=== PATIENT | female | born 1950 | race Asian ===

== ENCOUNTER 2023-12-06 21:26 | Inpatient (IN) | payer OTHER ==
[~2023-12-06] VITALS: Ht 162.6 cm; Wt 49.9 kg
[2023-12-06 21:39] VITALS: BP 129/75; PULSE 77; RESP 16; TEMP 98.1; O2SAT 99
[2023-12-06 22:22] LABS: APPEARANCE,URINE HAZY (CLEAR); BILIRUBIN,URINE 1+ (NEGATIVE); BLOOD, URINE 1+ (NEGATIVE); COLOR,URINE YELLOW (YELLOW); LEUKOCYTE ESTERASE ,URINE TRACE (NEGATIVE); NITRITE, URINE NEGATIVE (NEGATIVE); PROTEIN,URINE NEGATIVE (NEGATIVE); UGLUCOSE NEGATIVE (NEGATIVE)
[2023-12-06 22:24] LABS: ICTOTEST POSITIVE (NEGATIVE); RBC,URINE 0-5 /HPF (0-5); WBC,URINE 0-5 /HPF (0-5)
[2023-12-06 22:25] LABS: BACTERIA,URINE 2+ /HPF (None Seen); MUCUS,URINE None Seen /LPF (None Seen); SQUAMOUS EPITHELIAL CELL,UR 0-3 (FEW) /LPF (0-3 (FEW))
[2023-12-06 22:56] LABS: BASOPHILS # (AUTO) 0.1 K/uL (0.00-0.22); BASOPHILS % (AUTO) 0.6 % (0.0-2.0); EOSINOPHILS % (AUTO) 0.1 % (0.0-4.0); HEMATOCRIT 38.9 % (36-48); HEMOGLOBIN 13.1 g/dL (12.0-16.0); LYMPHOCYTES # (AUTO) 0.8 K/uL (2.5-16.5); LYMPHOCYTES % (AUTO) 6.4 % (20.5-51.1); MEAN CORPUSCULAR HEMOGLOBIN 32 pg (27-31); MEAN CORPUSCULAR HGB CONC 34 g/dL (33-37); MEAN CORPUSCULAR VOLUME 94.8 fL (80-94); MONOCYTES # (AUTO) 0.5 K/uL (0.8-1.0); MONOCYTES % (AUTO) 4.2 % (1.7-9.3); NEUTROPHILS # (AUTO) 11.4 K/uL (1.8-7.7); NEUTROPHILS % (AUTO) 88.7 % (42.2-75.2); PLATELET COUNT (AUTO) 316 K/uL (140-450); RED BLOOD CELL COUNT(AUTO) 4.11 MIL/uL (4.20-5.40); RED CELL DISTRIBUTION WIDTH 14.1 % (11.6-13.7); WHITE BLOOD COUNT (AUTO) 12.8 K/uL (4.8-10.8)
[2023-12-06] MEDS: ONDANSETRON 4 MG/2 ML VIAL IVP ONE (23:01)
[2023-12-06 23:04] LABS: ANION GAP 15.8 (8-16); CALCIUM 9.5 mg/dL (8.5-10.1); CARBON DIOXIDE 25.2 mmol/L (21-32); CHLORIDE 104 mmol/L (98-107); CREATININE 0.7 mg/dL (0.6-1.3); GLUCOSE 103 mg/dL (74-106); SODIUM SERUM 141 mmol/L (136-145); UREA NITROGEN, BLOOD 10 mg/dL (7-18)
[2023-12-06] MEDS: MORPHINE SULFATE 2 MG/ML SYR IVP STA (23:06)
[2023-12-06 23:18] LABS: ALBUMIN 3.7 g/dL (3.4-5.0); BILIRUBIN,DIRECT 1.4 mg/dL (0.0-0.3); TOTAL BILIRUBIN 2.1 mg/dL (0.0-1.0)
[2023-12-07] MEDS ORDERED: ACETAMINOPHEN 325 MG TAB PO PRN (04:50)
[2023-12-07] MEDS ORDERED: HYDROcodone/APAP 5/325 MG 1 TAB TAB PO PRN (04:50)
[2023-12-07] MEDS ORDERED: ONDANSETRON 4 MG/2 ML VIAL IVP PRN (04:50)
[2023-12-07] MEDS ORDERED: MORPHINE SULFATE 2 MG/ML SYR IVP PRN (04:50)
[2023-12-07] MEDS ORDERED: LORazepam 2 MG/ML VIAL IVP PRN (04:50)
[2023-12-07] MEDS: KETOROLAC 30 MG/ML VIAL IVP ONE (05:38)
[2023-12-07 05:44] VITALS: BP 125/71; PULSE 90; RESP 18; TEMP 98.8; O2SAT 96
[2023-12-07] MEDS: NACL 0.9% 1,000 ML IV SCH (05:52)
[2023-12-07] MEDS: PIPERACILLIN/TAZOBACTAM 3.375 GM in DEXTROSE 5% 50 ML IV SCH (06:01)
[2023-12-07] MEDS: PIPERACILLIN/TAZOBACTAM 3.375 GM VIAL IV ONE (06:03)
[2023-12-07 08:00] VITALS: BP 108/64; PULSE 87; PULSE 90; RESP 18; TEMP 98.7; O2SAT 64; O2SAT 94
[2023-12-07] MEDS: MEDS-TO-BEDS MC SCH (08:50)
[2023-12-07] MEDS: ENOXAPARIN 40 MG/0.4 ML SYR SUBQ SCH (08:56)
[2023-12-07 09:48] VITALS: PULSE 90; RESP 18; O2SAT 96
[2023-12-07 12:00] VITALS: BP 108/64; PULSE 90; RESP 18; TEMP 98.7; O2SAT 96
[2023-12-07 16:00] VITALS: BP 119/66; PULSE 70; RESP 18; TEMP 97.7; O2SAT 97
[2023-12-07 20:00] VITALS: BP 144/75; PULSE 72; RESP 18; TEMP 97.4; O2SAT 94; O2SAT 95
[2023-12-08 04:00] VITALS: BP 127/68; PULSE 67; RESP 18; TEMP 97.5; O2SAT 96
[2023-12-08 06:23] LABS: BASOPHILS % (AUTO) 0.8 % (0.0-2.0); EOSINOPHILS # (AUTO) 0.2 K/uL (0-0.4); EOSINOPHILS % (AUTO) 5.7 % (0.0-4.0); LYMPHOCYTES # (AUTO) 1.1 K/uL (2.5-16.5); LYMPHOCYTES % (AUTO) 28.3 % (20.5-51.1); MEAN CORPUSCULAR HEMOGLOBIN 32 pg (27-31); MEAN CORPUSCULAR HGB CONC 33 g/dL (33-37); MEAN CORPUSCULAR VOLUME 95.4 fL (80-94); MONOCYTES # (AUTO) 0.3 K/uL (0.8-1.0); MONOCYTES % (AUTO) 7.7 % (1.7-9.3); NEUTROPHILS # (AUTO) 2.2 K/uL (1.8-7.7); NEUTROPHILS % (AUTO) 57.5 % (42.2-75.2); PLATELET COUNT (AUTO) 293 K/uL (140-450); RED BLOOD CELL COUNT(AUTO) 3.77 MIL/uL (4.20-5.40); RED CELL DISTRIBUTION WIDTH 14.2 % (11.6-13.7); WHITE BLOOD COUNT (AUTO) 3.9 K/uL (4.8-10.8)
[2023-12-08 07:17] LABS: ALANINE AMINOTRANSFERASE 224 U/L (12-78); ALBUMIN 2.9 g/dL (3.4-5.0); ALKALINE PHOSPHATASE 376 U/L (50-136); ANION GAP 14.3 (8-16); ASPARTATE AMINOTRANSFERASE 121 U/L (15-37); CALCIUM 8.3 mg/dL (8.5-10.1); CARBON DIOXIDE 23.5 mmol/L (21-32); CHLORIDE 107 mmol/L (98-107); CREATININE 0.6 mg/dL (0.6-1.3); GLUCOSE 91 mg/dL (74-106); MAGNESIUM 2.1 mg/dL (1.8-2.4); POTASSIUM 3.8 mmol/L (3.5-5.1); SODIUM SERUM 141 mmol/L (136-145); TOTAL BILIRUBIN 1.4 mg/dL (0.0-1.0); TOTAL PROTEIN, SERUM 6.8 g/dL (6.4-8.2); UREA NITROGEN, BLOOD 6 mg/dL (7-18)
[2023-12-08 08:00] VITALS: BP 121/70; PULSE 66; RESP 18; TEMP 97.6; O2SAT 97
[2023-12-08 12:17] VITALS: BP 121/70; PULSE 66; RESP 18; TEMP 97.6; O2SAT 97
[2023-12-08 20:00] VITALS: BP 121/66; PULSE 67; RESP 18; TEMP 97.6; O2SAT 97; O2SAT 98
[2023-12-09] MEDS: ACETAMINOPHEN 100 ML IV ONE (07:51)
[2023-12-09] MEDS ORDERED: SEVOFLURANE 250 ML BTL INH ONE (07:54)
[2023-12-09 08:00] VITALS: BP 124/73; PULSE 65; PULSE 67; RESP 18; TEMP 97.8; O2SAT 98
[2023-12-09] MEDS: PROPOFOL 200 MG/20 ML VIAL IV ONE (08:19)
[2023-12-09] MEDS: ONDANSETRON 4 MG/2 ML VIAL ONE ×2 (08:19)
[2023-12-09] MEDS: SUCCINYLCHOLINE CHLORIDE 200 MG/10 ML VIAL IVP ONE (08:19)
[2023-12-09] MEDS: ePHEDrine 50 MG/ML VIAL ONE (08:33)
[2023-12-09] MEDS ORDERED: ACTI300 PO (13:50)
[2023-12-09 14:03] LABS: BASOPHILS % (AUTO) 0.4 % (0.0-2.0); EOSINOPHILS % (AUTO) 0.2 % (0.0-4.0); HEMATOCRIT 38.2 % (36-48); HEMOGLOBIN 12.7 g/dL (12.0-16.0); LYMPHOCYTES % (AUTO) 8.8 % (20.5-51.1); MEAN CORPUSCULAR HEMOGLOBIN 32 pg (27-31); MEAN CORPUSCULAR HGB CONC 33 g/dL (33-37); MEAN CORPUSCULAR VOLUME 95.7 fL (80-94); MONOCYTES # (AUTO) 0.7 K/uL (0.8-1.0); MONOCYTES % (AUTO) 6.5 % (1.7-9.3); NEUTROPHILS # (AUTO) 9.2 K/uL (1.8-7.7); NEUTROPHILS % (AUTO) 84.1 % (42.2-75.2); PLATELET COUNT (AUTO) 346 K/uL (140-450); RED BLOOD CELL COUNT(AUTO) 3.99 MIL/uL (4.20-5.40); WHITE BLOOD COUNT (AUTO) 10.9 K/uL (4.8-10.8)
[2023-12-09 14:18] LABS: ALANINE AMINOTRANSFERASE 163 U/L (12-78); ALBUMIN 3.1 g/dL (3.4-5.0); ALKALINE PHOSPHATASE 320 U/L (50-136); ANION GAP 14.1 (8-16); ASPARTATE AMINOTRANSFERASE 58 U/L (15-37); CALCIUM 8.8 mg/dL (8.5-10.1); CARBON DIOXIDE 25.5 mmol/L (21-32); CHLORIDE 107 mmol/L (98-107); CREATININE 0.6 mg/dL (0.6-1.3); GLUCOSE 90 mg/dL (74-106); POTASSIUM 3.6 mmol/L (3.5-5.1); SODIUM SERUM 143 mmol/L (136-145); TOTAL BILIRUBIN 0.8 mg/dL (0.0-1.0); TOTAL PROTEIN, SERUM 7.1 g/dL (6.4-8.2); UREA NITROGEN, BLOOD 5 mg/dL (7-18)
[2023-12-09 15:46] VITALS: BP 124/73; PULSE 65; RESP 18; TEMP 97.8
[2023-12-09 16:00] VITALS: BP 118/67; PULSE 68; RESP 18; TEMP 97.6; O2SAT 98
== END 2023-12-09 19:00 | disposition home or self-care (01) ==
LOC: MED 21:26 → MTU 12-07 04:53
PROVIDERS: ADMIT Hospitalist; ATTEND Hospitalist
PROC: 0FC98ZZ Extirpation of Matter from Common Bile Duct, Via Natural or Artificial Opening Endoscopic (ICD-10-PCS; principal; 2023-12-09 07:30)
DX: K80.51 Calculus of bile duct without cholangitis or cholecystitis with obstruction (principal); E80.6 Other disorders of bilirubin metabolism; R74.01 Elevation of levels of liver transaminase levels; I10 Essential (primary) hypertension; Z90.49 Acquired absence of other specified parts of digestive tract
CPT/HCPCS: 36415; 80048; 80053; 80076; 81001; 83690; 83735; 85025; 87081; 87086; 93005; 96374; 96375; 99285; C1769; C1773; J0330; J1650; J1885; J2270; J2405; J2543; J2704; J7060; Q9967